=== PATIENT | male | born 1980 | race Caucasian/White ===

== ENCOUNTER 2017-12-13 21:20 | Emergency (ER) | payer SELFPAY ==
[~2017-12-13] VITALS: Ht 185.4 cm; Wt 76.2 kg
[~2017-12-13 21:20] MED LIST: AMOX500C2 PO; CARB15DR87 OT; CEPH-38 PO; IBUP800T26 PO; NAPR-243 PO; PRD20T PO; TR5C15 TOP; TRAM-21 PO; TRAM50TA2 PO; TRM50T PO
[2017-12-13 21:26] VITALS: BP 131/78
[2017-12-13] MEDS ORDERED: AMOX500T2 PO (22:02)
--- NOTE | 2017-12-13 22:02 | ED EENT ---
History of Present Illness General Chief Complaint: Dental Problems/Pain Stated Complaint: R SIDE EAR AND DENTAL PAIN Nursing Triage Note: states thinks he has an ear infection rt side draining into mouth causing rt lower tooth pain Source: patient, spouse Exam Limitations: no limitations History of Present Illness Date Seen by Provider: Dec 13, 2017 Time Seen by Provider: 21:35 Allergies and Home Medications Allergies Coded Allergies: wasp venom (Unverified Allergy, Mild, 04/21/09) Home Medications Carbamide Peroxide 15 Ml Drops, 15 ML OT UD Prescribed by: MARY JUAREZ on 02/06/16 0431 Tramadol HCl 50 Mg Tablet, 50-100 MG PO Q6H PRN for ear pain Prescribed by: MARY JUAREZ on 02/06/16 043 Past Rdvlaih-Ujvfnz-Artfjy Hx Patient Social History Recent Foreign Travel: No Contact w/Someone Who Travel: No Recent Infectious Disease Expo: No Recent Hopitalizations: No Immunizations Up To Date Tetanus Booster (TDap): Unknown Seasonal Allergies Seasonal Allergies: No Past Medical History Reproductive Disorders: No Sexually Transmitted Disease: No Adverse Reaction/Blood Tranf: No Physical Exam Vital Signs Vital Signs - First Documented 12/13/17 21:26 Temp 98.9 Pulse 75 Resp 20 B/P (MAP) 131/78 (95) Pulse Ox 96 O2 Delivery Room Air Progress/Results/Core Measures Results/Orders Vital Signs/I&O 12/13/17 21:26 Temp 98.9 Pulse 75 Resp 20 B/P (MAP) 131/78 (95) Pulse Ox 96 O2 Delivery Room Air Blood Pressure Mean: 95 Departure Impression Primary Impression: Infected dental caries Additional Impression: Upper respiratory infection Disposition: 01 HOME, SELF-CARE Condition: Improved Departure-Patient Inst. Decision time for Depature: 21:58 Referrals: NO,LOCAL PHYSICIAN (PCP/Family) Primary Care Physician Patient Instructions: Bacterial Upper Respiratory Infection, Adult (DC), Tooth Decay, Adult (DC) Add. Discharge Instructions: All discharge instructions reviewed with patient and/or family. Voiced understanding. Medications as directed. Drink plenty of fluids. Follow-up with the dentist of your choice for dental repair or extraction. Call for appointment. Return to the emergency department for worsened symptoms or any other concerns. Scripts Naproxen (Naprosyn) 500 Mg Tablet 500 MG PO BID PRN for pain, #14 TAB 0 Refills Prov: ONEIL HELTON 12/13/17 Amoxicillin (Amoxicillin) 500 Mg Tablet 500 MG PO QID, #28 TAB 0 Refills Prov: ONEIL HELTON 12/13/17 ONEIL HELTON Dec 13, 2017 22:02
[2017-12-13] MEDS ORDERED: NAPR-1071 PO (22:03)
[2017-12-13] MEDS ORDERED: RX-AMOXICILLIN 500 MG CAP #3 PPK PO STA (22:06)
[2017-12-13] MEDS ORDERED: LIDOCAINE 2% VISCOUS 15 ML UDC PO ONE (22:15)
[2017-12-13] MEDS ORDERED: HURRICAINE EXT TUBE (BENZOCAINE) XX ONE (22:15)
== END 2017-12-13 22:23 | disposition home or self-care (01) ==
LOC: EDUNIT# 21:20 → ER 21:22
DX: K02.9 Dental caries, unspecified (principal); J06.9 Acute upper respiratory infection, unspecified
CPT/HCPCS: 99282

== ENCOUNTER 2018-04-22 03:13 | Emergency (ER) | payer SELFPAY ==
[~2018-04-22] VITALS: Ht 185.4 cm; Wt 83.9 kg
[~2018-04-22 03:13] MED LIST changes: +AMOX500T2 PO; +NAPR-1071 PO
--- OUTSIDE RECORDS SUMMARY | 2018-04-22 03:18 | XMS REPORT | Continuity of Care Document ---
Author Author [facility] Address Unknown Phone Unavailable Allergies Active Description Code Type Severity Reaction Onset Reported/Identified Relationship to Patient Clinical Status Yes NO KNOWN DRUG ALLERGIES NO KNOWN DRUG ALLERG UNKNOWN Yes NO KNOWN DRUG ALLERGIES UNKNOWN NO KNOWN DRUG ALLERG Yes venom-wasp [id number] Drug Allergy Mild N/A 04/21/2009 Yes wasp venom [id number] Drug Allergy Mild N/A 04/21/2009 Medications Medication Packaging Start Date Stop Date Route Dosage Sig AMOX-CLAV 875/125 TAB 875 MG-125MG (AUGMENTIN) TAB 04/11/2017 04/11/2017 ONCE&1553 KETOROLAC VIAL INJ 60 MG/2CC (TORADOL VIAL) MG 04/11/2017 04/11/2017 ONCE&1553 Problems Date Dx Coded Attending Type Code Diagnosis Diagnosed By 04/24/2012 EARNESTINE PHD, JOSE FRANCISCO A 296.90 Mood Disorder Nos 07/06/2013 MAYI STEPHENS, PREET Agudelo Ot 521.00 UNSPEC DENTAL CARIES 07/06/2013 MAYI STEPHENS, PREET Agudelo Ot 523.10 CHRONIC GINGIVITIS, PLAQUE INDUCED 07/06/2013 MAYI STEPHENS, PREET Agudelo Ot 525.9 DENTAL DISORDER NOS 11/25/2013 MARY JUAREZ DO Ot 692.9 DERMATITIS NOS 02/06/2016 MARY JUAREZ DO Ot H61.21 IMPACTED CERUMEN, RIGHT EAR 02/06/2016 MARY JUAREZ DO Ot H92.01 OTALGIA, RIGHT EAR 02/08/2016 MARY JUAREZ DO Ot H61.21 IMPACTED CERUMEN, RIGHT EAR 02/08/2016 MARY JUAREZ DO Ot H92.01 OTALGIA, RIGHT EAR 02/12/2016 MARY JUAREZ DO Ot H61.21 IMPACTED CERUMEN, RIGHT EAR 02/12/2016 MARY JUAREZ DO Ot H92.01 OTALGIA, RIGHT EAR 04/11/2016 A 784.92 JAW PAIN 04/11/2016 A R68.84 JAW PAIN 04/11/2017 Jaqueline Radford W 521.00 DENTAL CARIES, UNSPECIFIED 04/11/2017 Jaqueline Radford A 522.5 PERIAPICAL ABSCESS WITHOUT SINUS 04/11/2017 Jaqueline Radford W K02.9 DENTAL CARIES, UNSPECIFIED 04/11/2017 Jaqueline Radford A K04.7 PERIAPICAL ABSCESS WITHOUT SINUS 12/16/2017 ONEIL ROPER Ot J06.9 ACUTE UPPER RESPIRATORY INFECTION, UNSPE 12/16/2017 ONEIL ROPER Ot K02.9 DENTAL CARIES, UNSPECIFIED 12/16/2017 ONEIL ROPER Ot K08.89 OTHER SPECIFIED DISORDERS OF TEETH AND S Procedures Code [place] [address] PSYCH DIAG INTER EXAM 04/24/2012 58935 PSYCHO TESTING 1 HR W COMP 05/07/2012 Results There is no data. Encounters ACCT No. Visit Date/Time Discharge Status Pt. Type Provider Facility Loc./Unit Complaint [id number] 04/24/2012 07:44:00 04/24/2012 23:59:59 CLS Outpatient EARNESTINE FLOR, JOSE FRANCISCO Costa [id number] 12/13/2017 21:22:00 12/13/2017 22:23:00 DIS Emergency ONEIL ROPER [facility] ER R SIDE EAR AND DENTAL PAIN [id number] 02/06/2016 03:53:00 02/06/2016 04:38:00 DIS Emergency MARY JUAREZ DO [facility] ER R EAR PAIN [id number] 11/25/2013 01:46:00 11/25/2013 02:28:00 DIS Emergency MARY JUAREZ DO [facility] ER SORES ON FEET [id number] 07/06/2013 02:44:00 07/06/2013 03:36:00 DIS Emergency PREET SEE MD [facility] ER DENTAL EAR PAIN [id number] 04/11/2017 14:55:00 04/11/2017 16:43:00 DIS Outpatient Jaqueline Radford [facility] ER [id number] 04/11/2017 15:53:50 Document Registration [id number] 04/11/2016 10:57:00 Document Registration
[2018-04-22] MEDS ORDERED: LIDOCAINE 2% VISCOUS 15 ML UDC PO ONE (04:15)
--- NOTE | 2018-04-22 04:23 | ED EENT ---
History of Present Illness General Chief Complaint: Dental Problems/Pain Stated Complaint: SORE IN MOUTH Nursing Triage Note: PT ARRIVES TO ED ROOM #10 WITH C/O DENTAL ISSUES: TEETH ITCHING, PAINFUL TEETH AFTER RUNNING TONGUE OVER THEM, "HOLE UNDER TOOTH IS VERY ITCHY". PT STATES THAT THE PAIN STARTED YESTERDAY AND HE WAS UNABLE TO CALL THE DENTIST BECAUSE THEY WERE CLOSED. PT STATED HE TOOK IBUPROFEN 800MG @0300. PT DENIES INJURY. Source: patient Exam Limitations: no limitations History of Present Illness Date Seen by Provider: Apr 22, 2018 Time Seen by Provider: 04:06 Initial Comments Patient presents to ER by private conveyance with chief complaint for the past couple days he has had progressively worsening sore on the medial side of his right upper teeth in the gumline. It is not draining anything. It is painful to touch and sometimes itches. He's never had anything like this before. He associates it with the use of his vaporizer. He has not seen a dentist for it. He is not using any Orajel but he does try ibuprofen with minimal relief. Allergies and Home Medications Allergies Coded Allergies: wasp venom (Unverified Allergy, Mild, 04/21/09) Home Medications Amoxicillin 500 Mg Tablet, 500 MG PO QID Prescribed by: ONEIL HETLON on 12/13/172201 Carbamide Peroxide 15 Ml Drops, 15 ML OT UD Prescribed by: MARY JUAREZ on 02/06/16 043 Naproxen 500 Mg Tablet, 500 MG PO BID PRN for pain Prescribed by: ONEIL HELTON on 12/13/172202 Tramadol HCl 50 Mg Tablet, 50-100 MG PO Q6H PRN for ear pain Prescribed by: MARY JUAREZ on 02/06/16 0432 Patient Home Medication List Home Medication List Reviewed: Yes Review of Systems Review of Systems Constitutional: No chills, No diaphoresis Eyes: Denies Blindness, Denies Blurred Vision Ears: Denies Dizziness, Denies Pain Nose: denies clots, denies congestion Mouth: denies clots, denies loose teeth Past Nfvckdx-Ffwect-Tjatzc Hx Patient Social History Alcohol Use: Denies Use Recreational Drug Use: No Smoking Status: Current Everyday Smoker Type Used: Electronic/Vapor Recent Foreign Travel: No Contact w/Someone Who Travel: No Recent Infectious Disease Expo: No Recent Hopitalizations: No Physical Abuse: No Sexual Abuse: No Mistreated: No Fear: No Immunizations Up To Date Tetanus Booster (TDap): Unknown Seasonal Allergies Seasonal Allergies: No Past Medical History Surgeries: No Respiratory: No Cardiac: No Neurological: No Reproductive Disorders: No Sexually Transmitted Disease: No Gastrointestinal: No Musculoskeletal: No HEENT: No Adverse Reaction/Blood Tranf: No Family Medical History No Pertinent Family Hx Physical Exam Vital Signs Vital Signs - First Documented 04/22/18 03:36 Pulse 83 Resp 18 B/P (MAP) 117/66 (83) Pulse Ox 98 Height, Weight, BMI Height: 6'1.00" Weight: 185lbs. oz. 83.909866wv; BMI Method:Stated General Appearance: WD/WN, no apparent distress Eyes: bilateral eye normal inspection, bilateral eye PERRL, bilateral eye EOMI Ears: bilateral ear auricle normal, bilateral ear canal normal Nose: normal inspection; No active bleeding, No discharge Mouth/Throat: dental tenderness (gingiva on the medial side right upper jaw has some edema and tender, friable appearance), other (extensive dental caries) Neck: non-tender, full range of motion, normal inspection Cardiovascular: normal peripheral pulses, regular rate, rhythm Respiratory: no respiratory distress, no accessory muscle use Progress/Results/Core Measures Results/Orders My Orders Orders - NEVILLE TAN Lidocaine 2% Viscous 15 Ml (Xylocaine Vi (04/22/18 04:15) Vital Signs/I&O 04/22/18 03:36 Pulse 83 Resp 18 B/P (MAP) 117/66 (83) Pulse Ox 98 Blood Pressure Mean: 83 Progress Progress Note : Time: 04:20 Progress Note No apparent lesion, ulcer etc. but there is pretty extensive gingivitis and dental caries. We'll start amoxicillin, viscous lidocaine for the symptoms and Magic mouthwash for the gingivitis. We've encouraged him to go see a dentist. Departure Impression Primary Impression: Gingivitis Additional Impression: Dental caries Disposition: 01 HOME, SELF-CARE Condition: Stable Departure-Patient Inst. Decision time for Depature: 04:21 Referrals: MAGDALENE CSHULTZ DO (PCP/Family) Primary Care Physician Patient Instructions: Gingivitis (DC) Add. Discharge Instructions: Use the viscous lidocaine as needed to put on the tooth socket for pain. You can also use Orajel when you run out of the viscous lidocaine. Start taking the amoxicillin one capsule 3 times a day for the next week. Follow-up with a dentist. Start taking the Magic mouthwash twice daily for the next 14 days. All discharge instructions reviewed with patient and/or family. Voiced understanding. Scripts Chlorhexidine Gluconate (Chlorhexidine Gluconate) 473 Ml Mouthwash 15 ML MM BID for 14 Days, #473 ML 0 Refills Prov: NEVILLE TAN 04/22/18 NEVILLE TAN Apr 22, 2018 04:23
[2018-04-22] MEDS ORDERED: CHLO473M MM (04:25)
[2018-04-22] MEDS ORDERED: AMOX500C2 PO (04:53)
[2018-04-22 05:02] VITALS: BP 118/68
== END 2018-04-22 05:03 | disposition home or self-care (01) ==
LOC: EDUNIT# 03:13 → ER 03:15
DX: K05.10 Chronic gingivitis, plaque induced (principal); K02.9 Dental caries, unspecified; F17.210 Nicotine dependence, cigarettes, uncomplicated
CPT/HCPCS: 99283

== ENCOUNTER 2021-09-04 19:39 | Emergency (ER) | payer SELFPAY ==
[~2021-09-04] VITALS: Ht 185.4 cm; Wt 81.6 kg
[~2021-09-04 19:39] MED LIST changes: +NFCHLORHGL MM; -TRAM50TA2 PO
[2021-09-04 20:06] VITALS: BP 99/70
--- NOTE | 2021-09-04 20:40 | ED Upper Extremity ---
General Chief Complaint: Upper Extremity Stated Complaint: R WRIST PAIN Nursing Triage Note: pt ambulatory to FT2 with visitor present. pt states " about two months ago he hit his right wrist on a beer bottle" and when he moves or lifts something with his right wrist it sends a "shooting pain up his right arm" Source: patient Exam Limitations: no limitations History of Present Illness Date Seen by Provider: Sep 04, 2021 Time Seen by Provider: 20:37 Initial Comments 2 months ago he lacerated the volar and ulnar side of the right wrist on a broken beer bottle. Since then whenever he flexes his wrist he has a shooting pain that starts at the laceration site and extends proximally up to the elbow. No tingling distally of the fingers. He has not yet sought care for this. Onset: just prior to arrival Severity: moderate Pain/Injury Location: right wrist Method of Injury: direct blow Modifying Factors: Worse With Movement Allergies and Home Medications Allergies Coded Allergies: wasp venom (Unverified Allergy, Mild, 04/21/09) Patient Home Medication List Home Medication List Reviewed: Yes Amoxicillin (Amoxicillin) 500 Mg Tablet, 500 MG PO QID Prescribed by: ONEIL HELTON on 12/13/172201 Amoxicillin (Amoxicillin) 500 Mg Capsule, 500 MG PO TID Prescribed by: NEVILLE TAN on 04/22/18452 Carbamide Peroxide (Debrox) 15 Ml Drops, 15 ML OT UD Prescribed by: MARY JUAREZ on 02/06/16430 Chlorhexidine Gluconate (Chlorhexidine Gluconate) 473 Ml Mouthwash, 15 ML MM BID Prescribed by: NEVILLE TAN on 04/22/18424 Naproxen (Naprosyn) 500 Mg Tablet, 500 MG PO BID PRN for pain Prescribed by: ONEIL HELTON on 12/13/172202 Tramadol HCl (Tramadol HCl) 50 Mg Tablet, 50-100 MG PO Q6H PRN for ear pain Prescribed by: MARY JUAREZ on 02/06/16431 Review of Systems Constitutional: see HPI EENTM: see HPI Respiratory: no symptoms reported Cardiovascular: no symptoms reported Genitourinary: no symptoms reported Musculoskeletal: see HPI Skin: no symptoms reported Past Rqisadw-Giyiet-Urtgwm Hx Immunizations Up To Date Tetanus Booster (TDap): Unknown Seasonal Allergies Seasonal Allergies: No Past Medical History Surgeries: No Respiratory: No Cardiac: No Neurological: No Reproductive Disorders: No Sexually Transmitted Disease: No Gastrointestinal: No Musculoskeletal: No HEENT: No Adverse Reaction/Blood Tranf: No Family Medical History No Pertinent Family Hx Physical Exam Vital Signs Vital Signs - First Documented 09/04/21 20:06 Temp 37.1 Pulse 72 Resp 16 B/P (MAP) 99/70 (80) Pulse Ox 99 Capillary Refill : Height, Weight, BMI Height: 6'1.00" Weight: 185lbs. oz. 83.089836on; 23.00 BMI Method:Stated General Appearance: WD/WN, no apparent distress HEENT: PERRL/EOMI, normal ENT inspection Neck: non-tender, full range of motion Respiratory: no respiratory distress, no accessory muscle use Shoulder: normal inspection, non-tender Elbow/Forearm: normal inspection, Right (To the volar and ulnar side of the distal right forearm is an old healed 1 cm laceration. There is no surrounding erythema or induration. There is no palpable retained foreign body. Skin appears normal. 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 This pain is only present when he flexes his wrist. No tingling or numbness in the ulnar nerve distribution.) Wrist: Yes normal inspection, Yes non-tender Hand: normal inspection, non-tender Neurologic/Psychiatric: alert, normal mood/affect, oriented x 3 Skin: normal color, warm/dry Progress/Results/Core Measures Results/Orders My Orders Orders - TRIP AMOR APRN Wrist, Right, 3 Views Or More (09/04/21 20:33) Vital Signs/I&O 09/04/21 20:06 Temp 37.1 Pulse 72 Resp 16 B/P (MAP) 99/70 (80) Pulse Ox 99 Blood Pressure Mean: 80 Departure Impression Primary Impression: Pain of forearm after trauma Disposition: 01 HOME, SELF-CARE Condition: Stable Departure-Patient Inst. Decision time for Depature: 20:39 Referrals: CAMACHO TATE,LOCAL PHYSICIAN (PCP) Primary Care Physician Patient Instructions: Common Wrist Injuries (DC) Add. Discharge Instructions: 1. Call Dr. TATE tomorrow to make an appointment to be seen. Beware it may take 2 to 3 weeks to get into see him. Wear the wrist splint in the meantime and return to ER for any worsening. All discharge instructions reviewed with patient and/or family. Voiced understanding. TRIP AMOR APRN Sep 04, 2021 20:40
--- NOTE | 2021-09-04 21:02 | Diagnostic Imaging Report ---
INDICATION: Pain, ulnar side COMPARISON: None. FINDINGS: 3 views of the right wrist demonstrate no acute fracture or dislocation. There are no focal osseous lesions. No avascular necrosis is seen. The visualized soft tissue structures are unremarkable. The pronator fat pad is not displaced. There are no radio opaque foreign bodies. IMPRESSION: 1. No acute fracture or dislocation in the right wrist. Dictated by: Dictated on workstation # [id number]
== END 2021-09-04 20:59 | disposition home or self-care (01) ==
LOC: EDUNIT# 19:39 → ER 19:40
DX: M79.631 Pain in right forearm (principal)
CPT/HCPCS: 73110; 99281